=== PATIENT | male | born 1980 | race Caucasian/White ===

== ENCOUNTER → 2017-10-07 | Outpatient (CLI) | payer BC ==
--- NOTE | 2017-10-07 18:35 | EXERCISE STRESS ECHO ---
*NOTICE TO RECEIVING [employer] This information is strictly Confidential and protected under [place] law. [place] law prohibits you from making any further disclosure of this information unless further disclosure is expressly permitted by the written consent of the person to whom it pertains or is authorized by law. A general authorization for the release of medical or other information is not sufficient for this purpose. Hospital accepts no responsibility if the information is made available to any other person, INCLUDING THE PATIENT. Interpretation Summary * Name: ROLANDO BROTHERS Study Date: 10/07/2017 09:44 AM BP: 92/52 mmHg * Patient Location: [facility] HR: 62 * : 1980 (M/d/yyyy) Gender: Male Height: 67 in * Age: 37 yrs Ethnicity: [place] Weight: 170 lb * Ordering Physician: Pete Hernandez * Referring Physician: Pete Hernandez * Performed By: Leta Chatman RCS * * Reason For Study: CHEST PAIN * BSA: 1.9 m2 * -- Conclusions -- * Stress Echo: * 1. Negative stress echo for ischemia at 92 % MPHR. * 2. Negative exercise ECG for ischemia at 92 % MPHR. * 3. Appropriate blood pressure response to exercise. * 4. No arrhythmia. * 5. Study terminated due to fatigue. He had chest pain at rest (constant) that did not worsen or change with exertion. * 6. Excellent exercise tolerance. * Echo: * 1. Normal left ventricular size and systolic function. EF 55-60%. No regional wall motion abnormalities. No left ventricular hypertrophy. No significant diastolic dysfunction. * 2. No significant valvular abnormalities visualized. * 3. No prior study available for comparison. Procedure Details * ECHOEX, CPT #[id number] * ECHO COLOR FLOW, CPT #[id number] * ECHO DOPPLER, CPT #[id number] Left Ventricle * The left ventricle is normal in size. * There is normal left ventricular wall thickness. * Left ventricular systolic function is normal. * The left ventricular ejection fraction increases normally with stress. The left ventricular end-systolic cavity size reduces post-stress (normal response). The left ventricular wall motion with stress is normal. * Resting wall motion: Normal. Stress wall motion: Appropriate increase in Left ventricular systolic function and decrease in cavity size. No stress induced segmental wall motion abnormalities. Right Ventricle * The right ventricle is mildly dilated. * The right ventricular systolic function is normal as assessed by tricuspid annular plane systolic excursion (TAPSE) (normal >1.5 cm). Atria * The left atrial size is normal. * Right atrial size is normal. * No ASD visualized. Mitral Valve * The mitral valve leaflets appear normal. There is no evidence of stenosis, fluttering, or prolapse. * There is trace mitral regurgitation. Tricuspid Valve * The tricuspid valve is not well visualized, but is grossly normal. * There is no tricuspid stenosis. * There is trace tricuspid regurgitation. Aortic Valve * The aortic valve is trileaflet. * No hemodynamically significant valvular aortic stenosis. * No aortic regurgitation is present. Pulmonic Valve * The pulmonary valve is inadequately visualized, but the Doppler data is adequate for interpretation. * There is no significant pulmonary regurgitation. Great Vessels * The aortic root is normal size. * Ascending aorta of normal dimension * Normal IVC size and inspiratory collapse. Pericardium * There is no pericardial effusion. Stress Parameters * Sinus rhythm at 60 bpm. * Stress ECG: No ST changes. No arrhythmias. * No arrhythmia were noted with stress. * The stress portion of this study was personally supervised by the undersigned interpreting physician. * Rest heart rate was '61' BPM. * Rest blood pressure was '92/52' * Maximum heart rate achieved was 171 bpm. * Maximum heart rate was 92 % of maximum age-predicted heart rate. * Maximum blood pressure was '173/61' * Total exercise time was '15:01' * Maximum exercise MET level achieved was '17.20' METS * Maximum treadmill speed was '5.00' miles per hour. * Maximum treadmill elevation was '18.00'% grade. * Normal blood pressure response to exercise. * Exercise was terminated due to 'Fatigue' MMode 2D Measurements and Calculations IVSd 1.1 cm IVSs 1.5 cm LVIDd 5.0 cm LVIDs 3.5 cm LVPWd 1.0 cm LVPWs 1.3 cm IVS/LVPW 1.1 FS 29.9 % EDV(Teich) 117.6 ml ESV(Teich) 50.8 ml EF(Teich) 56.8 % EDV(cubed) 124.2 ml ESV(cubed) 42.8 ml EF(cubed) 65.5 % % IVS thick 32.7 % % LVPW thick 29.5 % LV mass(C)d 196.4 grams LV mass(C)dI 104.1 grams/m\S\2 LV mass(C)s 171.1 grams LV mass(C)sI 90.7 grams/m\S\2 SV(Teich) 66.8 ml SI(Teich) 35.4 ml/m\S\2 SV(cubed) 81.4 ml SI(cubed) 43.1 ml/m\S\2 Ao root diam 3.1 cm Ao root area 7.3 cm\S\2 LA dimension 3.0 cm asc Aorta Diam 2.7 cm LA/Ao 0.98 LVOT diam 2.0 cm LVOT area 3.2 cm\S\2 LVAd ap4 41.8 cm\S\2 LVLd ap4 9.2 cm EDV(MOD-sp4) 152.7 ml EDV(sp4-el) 161.6 ml LVAs ap4 26.1 cm\S\2 LVLs ap4 8.0 cm ESV(MOD-sp4) 69.5 ml ESV(sp4-el) 72.5 ml EF(MOD-sp4) 54.5 % EF(sp4-el) 55.1 % SV(MOD-sp4) 83.2 ml SI(MOD-sp4) 44.1 ml/m\S\2 SV(sp4-el) 89.1 ml SI(sp4-el) 47.2 ml/m\S\2 Doppler Measurements and Calculations MV E max negra 65.2 cm/sec MV A max negra 34.0 cm/sec MV E/A 1.9 MV P1/2t max negra 75.9 cm/sec MV P1/2t 83.7 msec MVA(P1/2t) 2.6 cm\S\2 MV dec slope 265.8 cm/sec\S\2 MV dec time 0.26 sec Ao V2 max 105.9 cm/sec Ao max PG 4.5 mmHg Ao max PG (full) 0.38 mmHg SHAREE(V,A) 3.1 cm\S\2 SHAREE(V,D) 3.1 cm\S\2 LV V1 max PG 4.1 mmHg LV V1 max 101.4 cm/sec MR max negra 376.0 cm/sec MR max PG 56.6 mmHg PA V2 max 82.0 cm/sec PA max PG 2.7 mmHg
== END | disposition home or self-care (01) ==
LOC: C.CPL 09:38
PROVIDERS: ATTEND Family Medicine
DX: R07.9 Chest pain, unspecified (principal)